=== PATIENT | female | born 1970 | race Hispanic/Latino ===

== ENCOUNTER 2020-11-06 14:54 | Emergency (ER) | payer MEDICAID ==
[~2020-11-06] VITALS: Ht 162.6 cm; Wt 81.6 kg
[2020-11-06 14:56] VITALS: BP 127/85
[2020-11-06 17:15] VITALS: BP 126/78
[2020-11-06] MEDS ORDERED: IBUP-2088 PO (18:31)
== END 2020-11-06 18:57 | disposition home or self-care (01) ==
LOC: EDH 14:54
DX: J02.9 Acute pharyngitis, unspecified (principal); R05 Cough; R09.81 Nasal congestion; Z20.822 Contact with and (suspected) exposure to COVID-19; Z79.1 Long term (current) use of non-steroidal anti-inflammatories (NSAID)
CPT/HCPCS: 87635; 87804 ×2; 87880; 99283; C9803